=== PATIENT | female | born 1955 | race Two or more races ===

== ENCOUNTER 2016-08-04 13:00 | Outpatient (CLI) | payer OTHER ==
[~2016-08-04 13:00] MED LIST: ASPI-991 PO; ATOR10TA PO; BLOO-140 IN; ENAL5TAB PO; INSU100V13 SQ; METF500T4 PO; SULF1TAB48 PO
== END 2016-08-04 23:59 | disposition home or self-care (01) ==
LOC: WOU 13:00
PROVIDERS: ATTEND Podiatrist Foot & Ankle Surgery
DX: E11.622 Type 2 diabetes mellitus with other skin ulcer (principal); L97.821 Non-pressure chronic ulcer of other part of left lower leg limited to breakdown of skin; E11.51 Type 2 diabetes mellitus with diabetic peripheral angiopathy without gangrene; E66.9 Obesity, unspecified; Z68.34 Body mass index [BMI] 34.0-34.9, adult; Z71.3 Dietary counseling and surveillance; I10 Essential (primary) hypertension; I83.223 Varicose veins of left lower extremity with both ulcer of ankle and inflammation; L97.321 Non-pressure chronic ulcer of left ankle limited to breakdown of skin; Z79.4 Long term (current) use of insulin
CPT/HCPCS: 11042; 11045; A6402

== ENCOUNTER 2016-08-14 12:18 | Outpatient (CLI) | payer OTHER | END 2016-08-14 23:59 | disposition home or self-care (01) | LOC: WOU 12:18 | PROVIDERS: ATTEND Podiatrist Foot & Ankle Surgery | DX: I83.222 Varicose veins of left lower extremity with both ulcer of calf and inflammation (principal); I83.223 Varicose veins of left lower extremity with both ulcer of ankle and inflammation; L97.222 Non-pressure chronic ulcer of left calf with fat layer exposed; L97.321 Non-pressure chronic ulcer of left ankle limited to breakdown of skin; I83.892 Varicose veins of left lower extremity with other complications; B35.1 Tinea unguium; E66.01 Morbid (severe) obesity due to excess calories; Z68.34 Body mass index [BMI] 34.0-34.9, adult; I10 Essential (primary) hypertension; E11.51 Type 2 diabetes mellitus with diabetic peripheral angiopathy without gangrene | CPT/HCPCS: 11042; 11045; A6402 ==

== ENCOUNTER 2016-08-25 13:10 | Outpatient (CLI) | payer OTHER ==
[~2016-08-25 13:10] MED LIST changes: -INSU100V13 SQ; +INSU100V7 SQ
== END 2016-08-25 23:59 | disposition home or self-care (01) ==
LOC: WOU 13:10
PROVIDERS: ATTEND Podiatrist Foot & Ankle Surgery
DX: E11.622 Type 2 diabetes mellitus with other skin ulcer (principal); I83.223 Varicose veins of left lower extremity with both ulcer of ankle and inflammation; L97.321 Non-pressure chronic ulcer of left ankle limited to breakdown of skin; I83.899 Varicose veins of unspecified lower extremity with other complications; E66.01 Morbid (severe) obesity due to excess calories; Z68.34 Body mass index [BMI] 34.0-34.9, adult; I10 Essential (primary) hypertension
CPT/HCPCS: 11042; 11045; A6402

== ENCOUNTER 2016-09-08 12:19 | Outpatient (CLI) | payer OTHER | END 2016-09-08 23:59 | disposition home or self-care (01) | LOC: WOU 12:19 | PROVIDERS: ATTEND Podiatrist Foot & Ankle Surgery | DX: E11.621 Type 2 diabetes mellitus with foot ulcer (principal); L97.222 Non-pressure chronic ulcer of left calf with fat layer exposed; I83.223 Varicose veins of left lower extremity with both ulcer of ankle and inflammation; L97.321 Non-pressure chronic ulcer of left ankle limited to breakdown of skin; L97.221 Non-pressure chronic ulcer of left calf limited to breakdown of skin; E11.52 Type 2 diabetes mellitus with diabetic peripheral angiopathy with gangrene; E66.01 Morbid (severe) obesity due to excess calories; Z68.34 Body mass index [BMI] 34.0-34.9, adult; I10 Essential (primary) hypertension; I83.892 Varicose veins of left lower extremity with other complications; Z79.4 Long term (current) use of insulin; Z79.84 Long term (current) use of oral hypoglycemic drugs | CPT/HCPCS: 11042; A6402 ==

== ENCOUNTER 2016-09-23 12:37 | Outpatient (CLI) | payer OTHER | END 2016-09-23 23:59 | disposition home or self-care (01) | DX: E11.622 Type 2 diabetes mellitus with other skin ulcer (principal); L97.222 Non-pressure chronic ulcer of left calf with fat layer exposed; E11.51 Type 2 diabetes mellitus with diabetic peripheral angiopathy without gangrene; I83.223 Varicose veins of left lower extremity with both ulcer of ankle and inflammation; L97.321 Non-pressure chronic ulcer of left ankle limited to breakdown of skin; E66.01 Morbid (severe) obesity due to excess calories; Z68.34 Body mass index [BMI] 34.0-34.9, adult; I10 Essential (primary) hypertension; I83.892 Varicose veins of left lower extremity with other complications; Z79.4 Long term (current) use of insulin | CPT/HCPCS: 11042; A6402 ==

== ENCOUNTER 2016-10-09 13:00 | Outpatient (CLI) | payer OTHER | END 2016-10-09 23:59 | disposition home or self-care (01) | LOC: WOU 13:00 | PROVIDERS: ATTEND Podiatrist Foot & Ankle Surgery | DX: E11.622 Type 2 diabetes mellitus with other skin ulcer (principal); L97.221 Non-pressure chronic ulcer of left calf limited to breakdown of skin; L97.321 Non-pressure chronic ulcer of left ankle limited to breakdown of skin; E66.9 Obesity, unspecified; Z68.34 Body mass index [BMI] 34.0-34.9, adult; E11.51 Type 2 diabetes mellitus with diabetic peripheral angiopathy without gangrene; Z79.4 Long term (current) use of insulin; Z79.84 Long term (current) use of oral hypoglycemic drugs; I83.892 Varicose veins of left lower extremity with other complications; B35.1 Tinea unguium | CPT/HCPCS: 11042; A6402 ==

== ENCOUNTER 2016-10-16 12:36 | Outpatient (CLI) | payer OTHER | END 2016-10-16 23:59 | disposition home or self-care (01) | LOC: WOU 12:36 | PROVIDERS: ATTEND Podiatrist Foot & Ankle Surgery | DX: E11.622 Type 2 diabetes mellitus with other skin ulcer (principal); L97.821 Non-pressure chronic ulcer of other part of left lower leg limited to breakdown of skin; I83.222 Varicose veins of left lower extremity with both ulcer of calf and inflammation; L97.222 Non-pressure chronic ulcer of left calf with fat layer exposed; L97.321 Non-pressure chronic ulcer of left ankle limited to breakdown of skin; I10 Essential (primary) hypertension; E66.9 Obesity, unspecified; Z68.34 Body mass index [BMI] 34.0-34.9, adult | CPT/HCPCS: 11042; A6402 ==

== ENCOUNTER 2016-10-23 12:32 | Outpatient (CLI) | payer OTHER | END 2016-10-23 23:59 | disposition home or self-care (01) | LOC: WOU 12:32 | PROVIDERS: ATTEND Podiatrist Foot & Ankle Surgery | DX: I83.023 Varicose veins of left lower extremity with ulcer of ankle (principal); L97.321 Non-pressure chronic ulcer of left ankle limited to breakdown of skin; I83.028 Varicose veins of left lower extremity with ulcer other part of lower leg; L97.821 Non-pressure chronic ulcer of other part of left lower leg limited to breakdown of skin; E11.622 Type 2 diabetes mellitus with other skin ulcer; E66.9 Obesity, unspecified; Z68.34 Body mass index [BMI] 34.0-34.9, adult; E11.52 Type 2 diabetes mellitus with diabetic peripheral angiopathy with gangrene | CPT/HCPCS: 11042; 11043; A6402 ==

== ENCOUNTER 2016-10-30 12:49 | Outpatient (CLI) | payer OTHER | END 2016-10-30 23:59 | disposition home or self-care (01) | LOC: WOU 12:49 | PROVIDERS: ATTEND Podiatrist Foot & Ankle Surgery | DX: I83.023 Varicose veins of left lower extremity with ulcer of ankle (principal); L97.321 Non-pressure chronic ulcer of left ankle limited to breakdown of skin; I83.028 Varicose veins of left lower extremity with ulcer other part of lower leg; L97.821 Non-pressure chronic ulcer of other part of left lower leg limited to breakdown of skin; I83.892 Varicose veins of left lower extremity with other complications; E11.622 Type 2 diabetes mellitus with other skin ulcer; E66.9 Obesity, unspecified; Z68.34 Body mass index [BMI] 34.0-34.9, adult; Z71.3 Dietary counseling and surveillance | CPT/HCPCS: 11042; A6402 ==

== ENCOUNTER 2016-11-13 12:40 | Outpatient (CLI) | payer OTHER | END 2016-11-13 23:59 | disposition home or self-care (01) | LOC: WOU 12:40 | PROVIDERS: ATTEND Podiatrist Foot & Ankle Surgery | DX: E11.622 Type 2 diabetes mellitus with other skin ulcer (principal); I83.023 Varicose veins of left lower extremity with ulcer of ankle; L97.221 Non-pressure chronic ulcer of left calf limited to breakdown of skin; L97.321 Non-pressure chronic ulcer of left ankle limited to breakdown of skin; E66.01 Morbid (severe) obesity due to excess calories; Z68.34 Body mass index [BMI] 34.0-34.9, adult; Z71.3 Dietary counseling and surveillance; E11.42 Type 2 diabetes mellitus with diabetic polyneuropathy; B35.1 Tinea unguium; Z79.84 Long term (current) use of oral hypoglycemic drugs; Z79.4 Long term (current) use of insulin; Z79.899 Other long term (current) drug therapy | CPT/HCPCS: 11042; A6402 ==

== ENCOUNTER 2016-11-27 11:53 | Outpatient (CLI) | payer OTHER | END 2016-11-27 23:59 | disposition home or self-care (01) | LOC: WOU 11:53 | PROVIDERS: ATTEND Podiatrist Foot & Ankle Surgery | DX: E11.52 Type 2 diabetes mellitus with diabetic peripheral angiopathy with gangrene (principal); E11.622 Type 2 diabetes mellitus with other skin ulcer; L97.821 Non-pressure chronic ulcer of other part of left lower leg limited to breakdown of skin; E66.01 Morbid (severe) obesity due to excess calories; Z68.34 Body mass index [BMI] 34.0-34.9, adult; I83.222 Varicose veins of left lower extremity with both ulcer of calf and inflammation; L97.222 Non-pressure chronic ulcer of left calf with fat layer exposed; I83.223 Varicose veins of left lower extremity with both ulcer of ankle and inflammation; L97.321 Non-pressure chronic ulcer of left ankle limited to breakdown of skin; I10 Essential (primary) hypertension; B35.1 Tinea unguium; I83.892 Varicose veins of left lower extremity with other complications; Z79.84 Long term (current) use of oral hypoglycemic drugs; Z79.1 Long term (current) use of non-steroidal anti-inflammatories (NSAID) | CPT/HCPCS: 11042; A6402 ==

== ENCOUNTER 2016-12-15 12:24 | Outpatient (CLI) | payer OTHER | END 2016-12-15 23:59 | disposition home or self-care (01) | LOC: WOU 12:24 | PROVIDERS: ATTEND Podiatrist Foot & Ankle Surgery | DX: E11.622 Type 2 diabetes mellitus with other skin ulcer (principal); L97.321 Non-pressure chronic ulcer of left ankle limited to breakdown of skin; L97.221 Non-pressure chronic ulcer of left calf limited to breakdown of skin; I83.223 Varicose veins of left lower extremity with both ulcer of ankle and inflammation; E66.01 Morbid (severe) obesity due to excess calories; Z68.34 Body mass index [BMI] 34.0-34.9, adult; Z79.84 Long term (current) use of oral hypoglycemic drugs; Z79.4 Long term (current) use of insulin; Z79.899 Other long term (current) drug therapy | CPT/HCPCS: 11042; A6402 ==

== ENCOUNTER 2017-01-01 13:34 | Outpatient (CLI) | payer OTHER | END 2017-01-01 23:59 | disposition home or self-care (01) | LOC: WOU 13:34 | PROVIDERS: ATTEND Podiatrist Foot & Ankle Surgery | DX: E11.622 Type 2 diabetes mellitus with other skin ulcer (principal); L97.821 Non-pressure chronic ulcer of other part of left lower leg limited to breakdown of skin; L97.221 Non-pressure chronic ulcer of left calf limited to breakdown of skin; L97.321 Non-pressure chronic ulcer of left ankle limited to breakdown of skin; I83.022 Varicose veins of left lower extremity with ulcer of calf; E66.9 Obesity, unspecified; Z68.34 Body mass index [BMI] 34.0-34.9, adult; B35.1 Tinea unguium; E11.40 Type 2 diabetes mellitus with diabetic neuropathy, unspecified | CPT/HCPCS: 11042; A6402 ==

== ENCOUNTER 2017-01-15 12:36 | Outpatient (CLI) | payer OTHER | END 2017-01-15 23:59 | disposition home or self-care (01) | LOC: WOU 12:36 | PROVIDERS: ATTEND Podiatrist Foot & Ankle Surgery | DX: I87.2 Venous insufficiency (chronic) (peripheral) (principal); L97.321 Non-pressure chronic ulcer of left ankle limited to breakdown of skin; E11.622 Type 2 diabetes mellitus with other skin ulcer; E11.40 Type 2 diabetes mellitus with diabetic neuropathy, unspecified; E66.9 Obesity, unspecified; Z68.34 Body mass index [BMI] 34.0-34.9, adult; L97.221 Non-pressure chronic ulcer of left calf limited to breakdown of skin; E46 Unspecified protein-calorie malnutrition; I10 Essential (primary) hypertension; I89.0 Lymphedema, not elsewhere classified; B35.1 Tinea unguium | CPT/HCPCS: 11042; A6402 ==

== ENCOUNTER 2017-02-05 12:55 | Outpatient (CLI) | payer OTHER | END 2017-02-05 23:59 | disposition home or self-care (01) | LOC: WOU 12:55 | PROVIDERS: ATTEND Podiatrist Foot & Ankle Surgery | DX: E11.51 Type 2 diabetes mellitus with diabetic peripheral angiopathy without gangrene (principal); E11.622 Type 2 diabetes mellitus with other skin ulcer; L97.821 Non-pressure chronic ulcer of other part of left lower leg limited to breakdown of skin; I83.899 Varicose veins of unspecified lower extremity with other complications; B35.1 Tinea unguium; Z79.84 Long term (current) use of oral hypoglycemic drugs; Z79.4 Long term (current) use of insulin | CPT/HCPCS: 11042; A6402 ==

== ENCOUNTER 2017-02-26 12:49 | Outpatient (CLI) | payer OTHER | END 2017-02-26 23:59 | disposition home or self-care (01) | LOC: WOU 12:49 | PROVIDERS: ATTEND Podiatrist Foot & Ankle Surgery | DX: E11.622 Type 2 diabetes mellitus with other skin ulcer (principal); L97.321 Non-pressure chronic ulcer of left ankle limited to breakdown of skin; L97.221 Non-pressure chronic ulcer of left calf limited to breakdown of skin; E11.59 Type 2 diabetes mellitus with other circulatory complications; I83.892 Varicose veins of left lower extremity with other complications; E66.9 Obesity, unspecified; Z68.34 Body mass index [BMI] 34.0-34.9, adult; B35.3 Tinea pedis | CPT/HCPCS: 11042; A6402 ==

== ENCOUNTER 2017-03-12 12:31 | Outpatient (CLI) | payer OTHER | END 2017-03-12 23:59 | disposition home or self-care (01) | LOC: WOU 12:31 | PROVIDERS: ATTEND Podiatrist Foot & Ankle Surgery | DX: E11.622 Type 2 diabetes mellitus with other skin ulcer (principal); L97.221 Non-pressure chronic ulcer of left calf limited to breakdown of skin; B35.1 Tinea unguium; E66.9 Obesity, unspecified; Z68.34 Body mass index [BMI] 34.0-34.9, adult; B35.3 Tinea pedis; I83.893 Varicose veins of bilateral lower extremities with other complications | CPT/HCPCS: 11042; A6402 ==

== ENCOUNTER 2017-04-02 13:00 | Outpatient (CLI) | payer OTHER | END 2017-04-02 23:59 | disposition home or self-care (01) | LOC: WOU 13:00 | PROVIDERS: ATTEND Podiatrist Foot & Ankle Surgery | DX: E11.51 Type 2 diabetes mellitus with diabetic peripheral angiopathy without gangrene (principal); E11.622 Type 2 diabetes mellitus with other skin ulcer; L97.821 Non-pressure chronic ulcer of other part of left lower leg limited to breakdown of skin; B35.3 Tinea pedis; I83.028 Varicose veins of left lower extremity with ulcer other part of lower leg; E66.9 Obesity, unspecified; Z68.34 Body mass index [BMI] 34.0-34.9, adult; Z71.3 Dietary counseling and surveillance; Z79.82 Long term (current) use of aspirin; Z79.84 Long term (current) use of oral hypoglycemic drugs; Z79.4 Long term (current) use of insulin | CPT/HCPCS: 11042; A6402 ==

== ENCOUNTER 2017-04-23 12:30 | Outpatient (CLI) | payer OTHER | END 2017-04-23 23:59 | disposition home or self-care (01) | LOC: WOU 12:30 | PROVIDERS: ATTEND Podiatrist Foot & Ankle Surgery | DX: E11.622 Type 2 diabetes mellitus with other skin ulcer (principal); L97.821 Non-pressure chronic ulcer of other part of left lower leg limited to breakdown of skin; E11.51 Type 2 diabetes mellitus with diabetic peripheral angiopathy without gangrene; I83.018 Varicose veins of right lower extremity with ulcer other part of lower leg; L97.811 Non-pressure chronic ulcer of other part of right lower leg limited to breakdown of skin; B35.1 Tinea unguium; E66.9 Obesity, unspecified; Z68.34 Body mass index [BMI] 34.0-34.9, adult; S91.201A Unspecified open wound of right great toe with damage to nail, initial encounter; X58.XXXA Exposure to other specified factors, initial encounter; Y92.89 Other specified places as the place of occurrence of the external cause; R60.0 Localized edema | CPT/HCPCS: 11042; A6402 ==

== ENCOUNTER 2017-05-14 12:30 | Outpatient (CLI) | payer OTHER | END 2017-05-14 23:59 | disposition home or self-care (01) | LOC: WOU 12:30 | PROVIDERS: ATTEND Podiatrist Foot & Ankle Surgery | DX: E11.622 Type 2 diabetes mellitus with other skin ulcer (principal); L97.821 Non-pressure chronic ulcer of other part of left lower leg limited to breakdown of skin; E11.51 Type 2 diabetes mellitus with diabetic peripheral angiopathy without gangrene; I83.028 Varicose veins of left lower extremity with ulcer other part of lower leg; E66.9 Obesity, unspecified; Z68.34 Body mass index [BMI] 34.0-34.9, adult; Z71.3 Dietary counseling and surveillance; B35.1 Tinea unguium; Z79.84 Long term (current) use of oral hypoglycemic drugs | CPT/HCPCS: 11042; A6402 ==

== ENCOUNTER 2017-06-01 12:45 | Outpatient (CLI) | payer OTHER | END 2017-06-01 23:59 | disposition home or self-care (01) | LOC: WOU 12:45 | PROVIDERS: ATTEND Podiatrist Foot & Ankle Surgery | DX: E11.622 Type 2 diabetes mellitus with other skin ulcer (principal); I83.022 Varicose veins of left lower extremity with ulcer of calf; L97.221 Non-pressure chronic ulcer of left calf limited to breakdown of skin; B35.1 Tinea unguium; L90.9 Atrophic disorder of skin, unspecified; I83.892 Varicose veins of left lower extremity with other complications; E66.9 Obesity, unspecified; Z68.34 Body mass index [BMI] 34.0-34.9, adult; Z71.3 Dietary counseling and surveillance | CPT/HCPCS: 11042; A6402 ==

== ENCOUNTER 2017-06-22 12:45 | Outpatient (CLI) | payer OTHER | END 2017-06-22 23:59 | disposition home or self-care (01) | LOC: WOU 12:45 | PROVIDERS: ATTEND Podiatrist Foot & Ankle Surgery | DX: E11.622 Type 2 diabetes mellitus with other skin ulcer (principal); L97.222 Non-pressure chronic ulcer of left calf with fat layer exposed; E11.51 Type 2 diabetes mellitus with diabetic peripheral angiopathy without gangrene; I83.022 Varicose veins of left lower extremity with ulcer of calf; E66.9 Obesity, unspecified; Z68.34 Body mass index [BMI] 34.0-34.9, adult; B35.1 Tinea unguium; Z79.4 Long term (current) use of insulin; Z79.899 Other long term (current) drug therapy | CPT/HCPCS: 11042; A6402 ==

== ENCOUNTER 2017-07-13 13:00 | Outpatient (CLI) | payer OTHER | END 2017-07-13 23:59 | disposition home or self-care (01) | LOC: WOU 13:00 | PROVIDERS: ATTEND Podiatrist Foot & Ankle Surgery | DX: I83.892 Varicose veins of left lower extremity with other complications (principal); E66.9 Obesity, unspecified; Z68.34 Body mass index [BMI] 34.0-34.9, adult; B35.1 Tinea unguium; L90.5 Scar conditions and fibrosis of skin; E11.59 Type 2 diabetes mellitus with other circulatory complications; Z79.4 Long term (current) use of insulin; Z79.82 Long term (current) use of aspirin | CPT/HCPCS: G0463 ==

== ENCOUNTER 2017-07-30 12:30 | Outpatient (CLI) | payer OTHER ==
[~2017-07-30 12:30] MED LIST changes: +ASPI-1152 PO; -ASPI-991 PO
== END 2017-07-30 23:59 | disposition home or self-care (01) ==
LOC: WOU 12:30
PROVIDERS: ATTEND Podiatrist Foot & Ankle Surgery
DX: I83.899 Varicose veins of unspecified lower extremity with other complications (principal); E11.42 Type 2 diabetes mellitus with diabetic polyneuropathy; B35.1 Tinea unguium; L90.9 Atrophic disorder of skin, unspecified; E66.9 Obesity, unspecified; Z68.34 Body mass index [BMI] 34.0-34.9, adult
CPT/HCPCS: G0463

== ENCOUNTER 2017-08-31 12:30 | Outpatient (CLI) | payer OTHER | END 2017-08-31 23:59 | disposition home or self-care (01) | LOC: WOU 12:30 | PROVIDERS: ATTEND Podiatrist Foot & Ankle Surgery | DX: I83.028 Varicose veins of left lower extremity with ulcer other part of lower leg (principal); L97.822 Non-pressure chronic ulcer of other part of left lower leg with fat layer exposed; E11.42 Type 2 diabetes mellitus with diabetic polyneuropathy; R60.0 Localized edema; E66.9 Obesity, unspecified; Z68.34 Body mass index [BMI] 34.0-34.9, adult; I10 Essential (primary) hypertension; Z79.82 Long term (current) use of aspirin; Z79.4 Long term (current) use of insulin | CPT/HCPCS: 11042; A6402 ==

== ENCOUNTER 2017-10-08 12:52 | Outpatient (CLI) | payer OTHER | END 2017-10-08 23:59 | disposition home or self-care (01) | LOC: WOU 12:52 | PROVIDERS: ATTEND Podiatrist Foot & Ankle Surgery | DX: I83.892 Varicose veins of left lower extremity with other complications (principal); S80.822D Blister (nonthermal), left lower leg, subsequent encounter; X58.XXXD Exposure to other specified factors, subsequent encounter; B35.1 Tinea unguium; E66.9 Obesity, unspecified; Z68.42 Body mass index [BMI] 45.0-49.9, adult; L84 Corns and callosities; L90.9 Atrophic disorder of skin, unspecified; M79.675 Pain in left toe(s); E11.9 Type 2 diabetes mellitus without complications | CPT/HCPCS: 99213; A6402; G0463 ==

== ENCOUNTER 2017-10-26 12:42 | Outpatient (CLI) | payer OTHER | END 2017-10-26 23:59 | disposition home or self-care (01) | LOC: WOU 12:42 | PROVIDERS: ATTEND Podiatrist Foot & Ankle Surgery | DX: I83.892 Varicose veins of left lower extremity with other complications (principal); B35.1 Tinea unguium; L85.3 Xerosis cutis; E11.9 Type 2 diabetes mellitus without complications | CPT/HCPCS: G0463 ==

== ENCOUNTER 2018-04-26 12:40 | Outpatient (CLI) | payer OTHER ==
[~2018-04-26 12:40] MED LIST changes: +HEPARIN SODIUM, PORCINE 5000 UNITS/1 ML VIAL ONE; +METF-440 PO; -METF500T4 PO
== END 2018-04-26 23:59 | disposition home or self-care (01) ==
LOC: WOU 12:40
PROVIDERS: ATTEND Podiatrist Foot & Ankle Surgery
DX: E11.622 Type 2 diabetes mellitus with other skin ulcer (principal); L97.329 Non-pressure chronic ulcer of left ankle with unspecified severity; E11.65 Type 2 diabetes mellitus with hyperglycemia; I87.2 Venous insufficiency (chronic) (peripheral); R60.0 Localized edema; E66.9 Obesity, unspecified; Z68.42 Body mass index [BMI] 45.0-49.9, adult; Z71.3 Dietary counseling and surveillance; I10 Essential (primary) hypertension
CPT/HCPCS: 99214; A6402; Z7610; G0463; J1644

== ENCOUNTER 2018-05-06 13:00 | Outpatient (CLI) | payer OTHER ==
[~2018-05-06 13:00] MED LIST changes: -HEPARIN SODIUM, PORCINE 5000 UNITS/1 ML VIAL ONE
== END 2018-05-06 23:59 | disposition home or self-care (01) ==
LOC: WOU 13:00
PROVIDERS: ATTEND Podiatrist Foot & Ankle Surgery
DX: E11.622 Type 2 diabetes mellitus with other skin ulcer (principal); L97.828 Non-pressure chronic ulcer of other part of left lower leg with other specified severity; E66.9 Obesity, unspecified; Z68.42 Body mass index [BMI] 45.0-49.9, adult; Z79.84 Long term (current) use of oral hypoglycemic drugs; I83.892 Varicose veins of left lower extremity with other complications
CPT/HCPCS: 11042; A6402; Z7610

== ENCOUNTER 2018-05-13 12:30 | Outpatient (CLI) | payer OTHER | END 2018-05-13 23:59 | disposition home or self-care (01) | LOC: WOU 12:30 | PROVIDERS: ATTEND Podiatrist Foot & Ankle Surgery | DX: E11.622 Type 2 diabetes mellitus with other skin ulcer (principal); I83.023 Varicose veins of left lower extremity with ulcer of ankle; L97.322 Non-pressure chronic ulcer of left ankle with fat layer exposed; E66.9 Obesity, unspecified; Z68.42 Body mass index [BMI] 45.0-49.9, adult; R60.0 Localized edema; Z79.84 Long term (current) use of oral hypoglycemic drugs | CPT/HCPCS: 11042; A6402; Z7610 ==

== ENCOUNTER 2018-07-12 12:30 | Outpatient (CLI) | payer OTHER | END 2018-07-12 23:59 | disposition home or self-care (01) | LOC: WOU 12:30 | PROVIDERS: ATTEND Podiatrist Foot & Ankle Surgery | DX: E11.622 Type 2 diabetes mellitus with other skin ulcer (principal); L97.822 Non-pressure chronic ulcer of other part of left lower leg with fat layer exposed; E11.42 Type 2 diabetes mellitus with diabetic polyneuropathy; Z79.84 Long term (current) use of oral hypoglycemic drugs; I87.2 Venous insufficiency (chronic) (peripheral); R60.9 Edema, unspecified; B35.1 Tinea unguium | CPT/HCPCS: 11042; A6402 ×2; Z7610 ==

== ENCOUNTER 2018-07-22 12:30 | Outpatient (CLI) | payer OTHER | END 2018-07-22 23:59 | disposition home or self-care (01) | LOC: WOU 12:30 | PROVIDERS: ATTEND Podiatrist Foot & Ankle Surgery | DX: E11.622 Type 2 diabetes mellitus with other skin ulcer (principal); E11.51 Type 2 diabetes mellitus with diabetic peripheral angiopathy without gangrene; L97.822 Non-pressure chronic ulcer of other part of left lower leg with fat layer exposed; L97.818 Non-pressure chronic ulcer of other part of right lower leg with other specified severity; E66.9 Obesity, unspecified; Z68.42 Body mass index [BMI] 45.0-49.9, adult; Z71.3 Dietary counseling and surveillance; I83.018 Varicose veins of right lower extremity with ulcer other part of lower leg; I83.028 Varicose veins of left lower extremity with ulcer other part of lower leg; B35.1 Tinea unguium; M65.9 Synovitis and tenosynovitis, unspecified | CPT/HCPCS: 11042; A6402; Z7610 ==

== ENCOUNTER 2018-08-19 12:50 | Outpatient (CLI) | payer OTHER | END 2018-08-19 23:59 | disposition home or self-care (01) | LOC: WOU 12:50 | PROVIDERS: ATTEND Podiatrist Foot & Ankle Surgery | DX: E11.622 Type 2 diabetes mellitus with other skin ulcer (principal); L97.822 Non-pressure chronic ulcer of other part of left lower leg with fat layer exposed; E66.9 Obesity, unspecified; Z68.42 Body mass index [BMI] 45.0-49.9, adult; R60.0 Localized edema; I83.899 Varicose veins of unspecified lower extremity with other complications; Z79.84 Long term (current) use of oral hypoglycemic drugs | CPT/HCPCS: 11042; A6402; Z7610 ==

== ENCOUNTER 2018-08-26 12:00 | Outpatient (CLI) | payer OTHER | END 2018-08-26 23:59 | disposition home or self-care (01) | LOC: WOU 12:00 | PROVIDERS: ATTEND Podiatrist Foot & Ankle Surgery | DX: E11.622 Type 2 diabetes mellitus with other skin ulcer (principal); L97.822 Non-pressure chronic ulcer of other part of left lower leg with fat layer exposed; R60.0 Localized edema; I87.2 Venous insufficiency (chronic) (peripheral); E66.9 Obesity, unspecified; Z68.42 Body mass index [BMI] 45.0-49.9, adult; Z79.84 Long term (current) use of oral hypoglycemic drugs | CPT/HCPCS: 11042; A6402; Z7610 ==

== ENCOUNTER 2018-09-09 12:44 | Outpatient (CLI) | payer OTHER | END 2018-09-09 23:59 | disposition home or self-care (01) | LOC: WOU 12:44 | PROVIDERS: ATTEND Podiatrist Foot & Ankle Surgery | DX: E11.622 Type 2 diabetes mellitus with other skin ulcer (principal); L97.822 Non-pressure chronic ulcer of other part of left lower leg with fat layer exposed; I83.018 Varicose veins of right lower extremity with ulcer other part of lower leg; I83.891 Varicose veins of right lower extremity with other complications; Z79.84 Long term (current) use of oral hypoglycemic drugs; Z79.899 Other long term (current) drug therapy | CPT/HCPCS: 11042; A6402 ==

== ENCOUNTER 2018-09-30 12:45 | Outpatient (CLI) | payer OTHER | END 2018-09-30 23:59 | disposition home or self-care (01) | LOC: WOU 12:45 | PROVIDERS: ATTEND Podiatrist Foot & Ankle Surgery | DX: E11.622 Type 2 diabetes mellitus with other skin ulcer (principal); L97.822 Non-pressure chronic ulcer of other part of left lower leg with fat layer exposed; I87.8 Other specified disorders of veins; R60.0 Localized edema; B35.1 Tinea unguium; E66.9 Obesity, unspecified; Z68.42 Body mass index [BMI] 45.0-49.9, adult; E11.59 Type 2 diabetes mellitus with other circulatory complications; Z79.84 Long term (current) use of oral hypoglycemic drugs | CPT/HCPCS: 11042; A6402 ==

== ENCOUNTER 2018-10-07 12:00 | Outpatient (CLI) | payer OTHER | END 2018-10-07 23:59 | disposition home or self-care (01) | LOC: WOU 12:00 | PROVIDERS: ATTEND Podiatrist Foot & Ankle Surgery | DX: E11.622 Type 2 diabetes mellitus with other skin ulcer (principal); I83.023 Varicose veins of left lower extremity with ulcer of ankle; L97.321 Non-pressure chronic ulcer of left ankle limited to breakdown of skin; E66.9 Obesity, unspecified; Z68.42 Body mass index [BMI] 45.0-49.9, adult; B35.1 Tinea unguium; Z79.84 Long term (current) use of oral hypoglycemic drugs; Z79.899 Other long term (current) drug therapy | CPT/HCPCS: 11042; A6402 ==

== ENCOUNTER 2018-10-14 12:10 | Outpatient (CLI) | payer OTHER | END 2018-10-14 23:59 | disposition home or self-care (01) | LOC: WOU 12:10 | PROVIDERS: ATTEND Podiatrist Foot & Ankle Surgery | DX: E11.622 Type 2 diabetes mellitus with other skin ulcer (principal); L97.322 Non-pressure chronic ulcer of left ankle with fat layer exposed; E66.9 Obesity, unspecified; Z68.42 Body mass index [BMI] 45.0-49.9, adult; E11.42 Type 2 diabetes mellitus with diabetic polyneuropathy; R60.0 Localized edema; Z79.84 Long term (current) use of oral hypoglycemic drugs; I83.023 Varicose veins of left lower extremity with ulcer of ankle | CPT/HCPCS: 11042; A6402 ==

== ENCOUNTER 2018-10-28 12:05 | Outpatient (CLI) | payer OTHER | END 2018-10-28 23:59 | disposition home or self-care (01) | LOC: WOU 12:05 | PROVIDERS: ATTEND Podiatrist Foot & Ankle Surgery | DX: E11.622 Type 2 diabetes mellitus with other skin ulcer (principal); L97.322 Non-pressure chronic ulcer of left ankle with fat layer exposed; L03.116 Cellulitis of left lower limb; E11.42 Type 2 diabetes mellitus with diabetic polyneuropathy; E66.9 Obesity, unspecified; Z68.42 Body mass index [BMI] 45.0-49.9, adult; I83.892 Varicose veins of left lower extremity with other complications; Z79.84 Long term (current) use of oral hypoglycemic drugs; Z79.899 Other long term (current) drug therapy | CPT/HCPCS: 11042; A6402 ==

== ENCOUNTER 2018-11-11 12:00 | Outpatient (CLI) | payer OTHER | END 2018-11-11 23:59 | disposition home or self-care (01) | LOC: WOU 12:00 | PROVIDERS: ATTEND Podiatrist Foot & Ankle Surgery | DX: E11.622 Type 2 diabetes mellitus with other skin ulcer (principal); L97.322 Non-pressure chronic ulcer of left ankle with fat layer exposed; E66.9 Obesity, unspecified; Z68.42 Body mass index [BMI] 45.0-49.9, adult; I83.899 Varicose veins of unspecified lower extremity with other complications; Z79.84 Long term (current) use of oral hypoglycemic drugs | CPT/HCPCS: 11042; A6402 ==

== ENCOUNTER 2018-12-02 12:10 | Outpatient (CLI) | payer OTHER | END 2018-12-02 23:59 | disposition home or self-care (01) | LOC: WOU 12:10 | PROVIDERS: ATTEND Podiatrist Foot & Ankle Surgery | DX: E11.622 Type 2 diabetes mellitus with other skin ulcer (principal); L97.322 Non-pressure chronic ulcer of left ankle with fat layer exposed; I83.892 Varicose veins of left lower extremity with other complications; E66.9 Obesity, unspecified; Z68.42 Body mass index [BMI] 45.0-49.9, adult; B35.1 Tinea unguium; L90.9 Atrophic disorder of skin, unspecified; Z79.84 Long term (current) use of oral hypoglycemic drugs; Z79.899 Other long term (current) drug therapy | CPT/HCPCS: 11042; A6402 ==

== ENCOUNTER 2018-12-16 12:00 | Outpatient (CLI) | payer OTHER | END 2018-12-16 23:59 | disposition home or self-care (01) | LOC: WOU 12:00 | PROVIDERS: ATTEND Podiatrist Foot & Ankle Surgery | DX: E11.622 Type 2 diabetes mellitus with other skin ulcer (principal); L97.322 Non-pressure chronic ulcer of left ankle with fat layer exposed; E66.9 Obesity, unspecified; Z68.42 Body mass index [BMI] 45.0-49.9, adult; I87.8 Other specified disorders of veins; Z79.84 Long term (current) use of oral hypoglycemic drugs | CPT/HCPCS: 11042; A6402 ==

== ENCOUNTER 2018-12-30 11:00 | Outpatient (CLI) | payer OTHER | END 2018-12-30 23:59 | disposition home or self-care (01) | LOC: WOU 11:00 | PROVIDERS: ATTEND Podiatrist Foot & Ankle Surgery | DX: E11.622 Type 2 diabetes mellitus with other skin ulcer (principal); L97.322 Non-pressure chronic ulcer of left ankle with fat layer exposed; E66.9 Obesity, unspecified; Z68.42 Body mass index [BMI] 45.0-49.9, adult; B35.1 Tinea unguium; M79.675 Pain in left toe(s); M79.674 Pain in right toe(s); I83.90 Asymptomatic varicose veins of unspecified lower extremity; Z79.84 Long term (current) use of oral hypoglycemic drugs | CPT/HCPCS: 17250; A6402 ==

== ENCOUNTER 2019-01-13 12:15 | Outpatient (CLI) | payer OTHER | END 2019-01-13 23:59 | disposition home or self-care (01) | LOC: WOU 12:15 | PROVIDERS: ATTEND Podiatrist Foot & Ankle Surgery | DX: E11.622 Type 2 diabetes mellitus with other skin ulcer (principal); L97.322 Non-pressure chronic ulcer of left ankle with fat layer exposed; E66.9 Obesity, unspecified; Z68.42 Body mass index [BMI] 45.0-49.9, adult; Z71.3 Dietary counseling and surveillance; I83.023 Varicose veins of left lower extremity with ulcer of ankle; L97.321 Non-pressure chronic ulcer of left ankle limited to breakdown of skin; R60.0 Localized edema; E11.59 Type 2 diabetes mellitus with other circulatory complications | CPT/HCPCS: 17250; A6402 ==

== ENCOUNTER 2019-01-31 12:30 | Outpatient (CLI) | payer OTHER | END 2019-01-31 23:59 | disposition home or self-care (01) | LOC: WOU 12:30 | PROVIDERS: ATTEND Podiatrist Foot & Ankle Surgery | DX: E11.622 Type 2 diabetes mellitus with other skin ulcer (principal); L97.822 Non-pressure chronic ulcer of other part of left lower leg with fat layer exposed; I87.2 Venous insufficiency (chronic) (peripheral); L03.116 Cellulitis of left lower limb; R60.0 Localized edema; B35.1 Tinea unguium; E66.9 Obesity, unspecified; Z68.42 Body mass index [BMI] 45.0-49.9, adult; Z79.84 Long term (current) use of oral hypoglycemic drugs | CPT/HCPCS: 17250; A6402; G0463 ==

== ENCOUNTER 2019-02-07 12:30 | Outpatient (CLI) | payer OTHER ==
[~2019-02-07 12:30] MED LIST changes: +FENTANYL PF 250MCG/5ML AMPUL ONE; +MIDAZOLAM HCL 2 MG/2ML VIAL ONE; +ROCURONIUM BROMIDE 50 MG/5 ML ONE
== END 2019-02-07 23:59 | disposition home or self-care (01) ==
LOC: WOU 12:30
PROVIDERS: ATTEND Podiatrist Foot & Ankle Surgery
DX: E11.622 Type 2 diabetes mellitus with other skin ulcer (principal); L97.322 Non-pressure chronic ulcer of left ankle with fat layer exposed; I87.2 Venous insufficiency (chronic) (peripheral); R60.0 Localized edema; B35.1 Tinea unguium; Z79.84 Long term (current) use of oral hypoglycemic drugs
CPT/HCPCS: 17250; A6402; J2250; J3010

== ENCOUNTER 2019-02-14 12:00 | Outpatient (CLI) | payer OTHER ==
[~2019-02-14 12:00] MED LIST changes: -FENTANYL PF 250MCG/5ML AMPUL ONE; -MIDAZOLAM HCL 2 MG/2ML VIAL ONE; -ROCURONIUM BROMIDE 50 MG/5 ML ONE
== END 2019-02-14 23:59 | disposition home or self-care (01) ==
LOC: WOU 12:00
PROVIDERS: ATTEND Podiatrist Foot & Ankle Surgery
DX: E11.622 Type 2 diabetes mellitus with other skin ulcer (principal); L97.822 Non-pressure chronic ulcer of other part of left lower leg with fat layer exposed; Z79.84 Long term (current) use of oral hypoglycemic drugs; I87.2 Venous insufficiency (chronic) (peripheral); B35.1 Tinea unguium; R60.0 Localized edema; E66.9 Obesity, unspecified; Z68.42 Body mass index [BMI] 45.0-49.9, adult
CPT/HCPCS: 17250; A6402

== ENCOUNTER 2019-03-03 11:00 | Outpatient (CLI) | payer OTHER | END 2019-03-03 23:59 | disposition home or self-care (01) | LOC: WOU 11:00 | PROVIDERS: ATTEND Podiatrist Foot & Ankle Surgery | DX: E11.622 Type 2 diabetes mellitus with other skin ulcer (principal); L97.822 Non-pressure chronic ulcer of other part of left lower leg with fat layer exposed; I83.892 Varicose veins of left lower extremity with other complications; E66.9 Obesity, unspecified; Z68.42 Body mass index [BMI] 45.0-49.9, adult; B35.1 Tinea unguium; Z79.84 Long term (current) use of oral hypoglycemic drugs | CPT/HCPCS: 17250 ==

== ENCOUNTER 2019-03-17 11:00 | Outpatient (CLI) | payer OTHER | END 2019-03-17 23:59 | disposition home or self-care (01) | LOC: WOU 11:00 | PROVIDERS: ATTEND Podiatrist Foot & Ankle Surgery | DX: L03.116 Cellulitis of left lower limb (principal); R60.0 Localized edema; B35.1 Tinea unguium; E66.9 Obesity, unspecified; Z68.42 Body mass index [BMI] 45.0-49.9, adult; E11.59 Type 2 diabetes mellitus with other circulatory complications; I83.899 Varicose veins of unspecified lower extremity with other complications; Z79.84 Long term (current) use of oral hypoglycemic drugs | CPT/HCPCS: G0463 ==

== ENCOUNTER 2019-04-14 11:46 | Outpatient (CLI) | payer OTHER | END 2019-04-14 23:59 | disposition home or self-care (01) | LOC: WOU 11:46 | PROVIDERS: ATTEND Podiatrist Foot & Ankle Surgery | DX: I83.892 Varicose veins of left lower extremity with other complications (principal); B35.1 Tinea unguium; L85.3 Xerosis cutis; E11.9 Type 2 diabetes mellitus without complications; Z79.84 Long term (current) use of oral hypoglycemic drugs | CPT/HCPCS: G0463 ==

== ENCOUNTER 2019-07-12 12:40 | Outpatient (CLI) | payer OTHER | END 2019-07-12 23:59 | disposition home or self-care (01) | LOC: WOU 12:40 | PROVIDERS: ATTEND Podiatrist Foot & Ankle Surgery | DX: Z48.817 Encounter for surgical aftercare following surgery on the skin and subcutaneous tissue (principal); I87.2 Venous insufficiency (chronic) (peripheral); E66.9 Obesity, unspecified; Z68.42 Body mass index [BMI] 45.0-49.9, adult; B35.1 Tinea unguium; R60.0 Localized edema | CPT/HCPCS: G0463 ==

== ENCOUNTER 2019-09-15 11:20 | Outpatient (CLI) | payer OTHER | END 2019-09-15 23:59 | disposition home or self-care (01) | LOC: WOU 11:20 | PROVIDERS: ATTEND Podiatrist Foot & Ankle Surgery | DX: Z09 Encounter for follow-up examination after completed treatment for conditions other than malignant neoplasm (principal); L60.0 Ingrowing nail; M79.675 Pain in left toe(s); E66.01 Morbid (severe) obesity due to excess calories; Z68.42 Body mass index [BMI] 45.0-49.9, adult; L90.9 Atrophic disorder of skin, unspecified; B35.1 Tinea unguium; I87.2 Venous insufficiency (chronic) (peripheral); E11.9 Type 2 diabetes mellitus without complications | CPT/HCPCS: 11730 ==

== ENCOUNTER 2020-02-09 12:00 | Outpatient (CLI) | payer OTHER | END 2020-02-09 23:59 | disposition home or self-care (01) | LOC: WOU 12:00 | PROVIDERS: ATTEND Podiatrist Foot & Ankle Surgery | DX: I87.2 Venous insufficiency (chronic) (peripheral) (principal); L97.822 Non-pressure chronic ulcer of other part of left lower leg with fat layer exposed; R60.1 Generalized edema; B35.1 Tinea unguium; E11.9 Type 2 diabetes mellitus without complications; Z79.84 Long term (current) use of oral hypoglycemic drugs | CPT/HCPCS: 11042; 11045 ==

== ENCOUNTER → 2020-02-16 | Outpatient (CLI) | payer OTHER | END | disposition home or self-care (01) | LOC: WOU 10:30 | PROVIDERS: ATTEND Podiatrist Foot & Ankle Surgery | DX: I87.2 Venous insufficiency (chronic) (peripheral) (principal); L97.222 Non-pressure chronic ulcer of left calf with fat layer exposed; L03.116 Cellulitis of left lower limb; B35.1 Tinea unguium; E11.9 Type 2 diabetes mellitus without complications; Z79.84 Long term (current) use of oral hypoglycemic drugs; E66.9 Obesity, unspecified; Z68.42 Body mass index [BMI] 45.0-49.9, adult; R60.1 Generalized edema | CPT/HCPCS: 11042; 11045; 87070; 87077; 87186; A6207 ==

== ENCOUNTER 2020-02-23 10:00 | Outpatient (CLI) | payer OTHER | END 2020-02-23 23:59 | disposition home or self-care (01) | LOC: WOU 10:00 | PROVIDERS: ATTEND Podiatrist Foot & Ankle Surgery | DX: L97.222 Non-pressure chronic ulcer of left calf with fat layer exposed (principal); I87.2 Venous insufficiency (chronic) (peripheral); L03.116 Cellulitis of left lower limb; B35.1 Tinea unguium; R60.0 Localized edema; E11.9 Type 2 diabetes mellitus without complications; Z79.84 Long term (current) use of oral hypoglycemic drugs; I10 Essential (primary) hypertension | CPT/HCPCS: 11042; 11045; A6207 ==

== ENCOUNTER 2020-03-01 09:45 | Outpatient (CLI) | payer OTHER | END 2020-03-01 23:59 | disposition home or self-care (01) | LOC: WOU 09:45 | PROVIDERS: ATTEND Podiatrist Foot & Ankle Surgery | DX: I87.2 Venous insufficiency (chronic) (peripheral) (principal); L97.222 Non-pressure chronic ulcer of left calf with fat layer exposed; L03.116 Cellulitis of left lower limb; R60.1 Generalized edema; B35.1 Tinea unguium; E11.9 Type 2 diabetes mellitus without complications; Z79.84 Long term (current) use of oral hypoglycemic drugs | CPT/HCPCS: 11042; 11045; A6207 ==

== ENCOUNTER 2020-03-08 10:00 | Outpatient (CLI) | payer OTHER ==
[~2020-03-08 10:00] MED LIST changes: -ASPI-1152 PO; +ASPI-1420 PO
[2020-03-08] MEDS ORDERED: LIDOCAINE SOLN 4% 50 ML BOTTLE ONE (10:12)
[2020-03-08] MEDS ORDERED: UREA 10% -AHA 4% CREAM 57 GM TUBE ONE (10:36)
== END 2020-03-08 23:59 | disposition home or self-care (01) ==
LOC: WOU 10:00
PROVIDERS: ATTEND Podiatrist Foot & Ankle Surgery
DX: I87.2 Venous insufficiency (chronic) (peripheral) (principal); L97.222 Non-pressure chronic ulcer of left calf with fat layer exposed; B35.1 Tinea unguium; E11.9 Type 2 diabetes mellitus without complications; Z79.84 Long term (current) use of oral hypoglycemic drugs; E66.9 Obesity, unspecified; Z68.42 Body mass index [BMI] 45.0-49.9, adult; R60.1 Generalized edema
CPT/HCPCS: 11042; A6207

== ENCOUNTER 2020-03-19 10:30 | Outpatient (CLI) | payer OTHER ==
[2020-03-19] MEDS ORDERED: UREA 10% -AHA 4% CREAM 57 GM TUBE ONE (11:29)
== END 2020-03-19 23:59 | disposition home or self-care (01) ==
LOC: WOU 10:30
PROVIDERS: ATTEND Podiatrist Foot & Ankle Surgery
DX: I87.2 Venous insufficiency (chronic) (peripheral) (principal); L97.822 Non-pressure chronic ulcer of other part of left lower leg with fat layer exposed; R60.1 Generalized edema; B35.1 Tinea unguium; E11.9 Type 2 diabetes mellitus without complications; Z79.84 Long term (current) use of oral hypoglycemic drugs; I10 Essential (primary) hypertension
CPT/HCPCS: 11042; 11045; A6207

== ENCOUNTER 2020-03-29 09:50 | Outpatient (CLI) | payer OTHER ==
[2020-03-29] MEDS ORDERED: UREA 10% -AHA 4% CREAM 57 GM TUBE ONE (10:50)
== END 2020-03-29 23:59 | disposition home or self-care (01) ==
LOC: WOU 09:50
PROVIDERS: ATTEND Podiatrist Foot & Ankle Surgery
DX: I87.2 Venous insufficiency (chronic) (peripheral) (principal); L97.822 Non-pressure chronic ulcer of other part of left lower leg with fat layer exposed; R60.1 Generalized edema; B35.1 Tinea unguium; E11.9 Type 2 diabetes mellitus without complications; Z79.84 Long term (current) use of oral hypoglycemic drugs
CPT/HCPCS: 11042

== ENCOUNTER 2020-04-05 09:45 | Outpatient (CLI) | payer OTHER ==
[~2020-04-05 09:45] MED LIST changes: +LIDOCAINE SOLN 4% 50 ML BOTTLE ONE
== END 2020-04-05 23:59 | disposition home or self-care (01) ==
LOC: WOU 09:45
PROVIDERS: ATTEND Podiatrist Foot & Ankle Surgery
DX: I87.2 Venous insufficiency (chronic) (peripheral) (principal); L97.822 Non-pressure chronic ulcer of other part of left lower leg with fat layer exposed; B35.1 Tinea unguium; R60.1 Generalized edema; E66.01 Morbid (severe) obesity due to excess calories; Z68.42 Body mass index [BMI] 45.0-49.9, adult; E11.9 Type 2 diabetes mellitus without complications; Z79.84 Long term (current) use of oral hypoglycemic drugs
CPT/HCPCS: 11042

== ENCOUNTER 2020-04-12 09:40 | Outpatient (CLI) | payer OTHER ==
[~2020-04-12 09:40] MED LIST changes: -LIDOCAINE SOLN 4% 50 ML BOTTLE ONE
[2020-04-12] MEDS ORDERED: LIDOCAINE SOLN 4% 50 ML BOTTLE ONE (09:58)
[2020-04-12] MEDS ORDERED: UREA 10% -AHA 4% CREAM 57 GM TUBE ONE (10:58)
== END 2020-04-12 23:59 | disposition home or self-care (01) ==
LOC: WOU 09:40
PROVIDERS: ATTEND Podiatrist Foot & Ankle Surgery
DX: I87.2 Venous insufficiency (chronic) (peripheral) (principal); L97.822 Non-pressure chronic ulcer of other part of left lower leg with fat layer exposed; B35.1 Tinea unguium; E11.9 Type 2 diabetes mellitus without complications; Z79.84 Long term (current) use of oral hypoglycemic drugs; R60.1 Generalized edema
CPT/HCPCS: 11042

== ENCOUNTER 2020-04-19 09:40 | Outpatient (CLI) | payer OTHER ==
[~2020-04-19 09:40] MED LIST changes: +ENAL-78 PO; -ENAL5TAB PO
== END 2020-04-19 23:59 | disposition home or self-care (01) ==
LOC: WOU 09:40
PROVIDERS: ATTEND Podiatrist Foot & Ankle Surgery
DX: I87.2 Venous insufficiency (chronic) (peripheral) (principal); R60.1 Generalized edema; B35.1 Tinea unguium; I10 Essential (primary) hypertension; E66.9 Obesity, unspecified; Z68.42 Body mass index [BMI] 45.0-49.9, adult; E11.9 Type 2 diabetes mellitus without complications; Z79.84 Long term (current) use of oral hypoglycemic drugs
CPT/HCPCS: 11042

== ENCOUNTER 2020-05-03 10:05 | Outpatient (CLI) | payer OTHER ==
[~2020-05-03 10:05] MED LIST changes: +LIDOCAINE SOLN 4% 50 ML BOTTLE ONE
== END 2020-05-03 23:59 | disposition home or self-care (01) ==
LOC: WOU 10:05
PROVIDERS: ATTEND Podiatrist Foot & Ankle Surgery
DX: I87.2 Venous insufficiency (chronic) (peripheral) (principal); L97.822 Non-pressure chronic ulcer of other part of left lower leg with fat layer exposed; R60.1 Generalized edema; B35.1 Tinea unguium; E11.9 Type 2 diabetes mellitus without complications; Z79.84 Long term (current) use of oral hypoglycemic drugs
CPT/HCPCS: 11042

== ENCOUNTER 2020-05-10 10:00 | Outpatient (CLI) | payer OTHER ==
[~2020-05-10 10:00] MED LIST changes: -LIDOCAINE SOLN 4% 50 ML BOTTLE ONE
[2020-05-10] MEDS ORDERED: LIDOCAINE SOLN 4% 50 ML BOTTLE ONE (10:11)
[2020-05-10] MEDS ORDERED: UREA 10% -AHA 4% CREAM 57 GM TUBE ONE (10:12)
== END 2020-05-10 23:59 | disposition home or self-care (01) ==
LOC: WOU 10:00
PROVIDERS: ATTEND Podiatrist Foot & Ankle Surgery
DX: I87.2 Venous insufficiency (chronic) (peripheral) (principal); L97.222 Non-pressure chronic ulcer of left calf with fat layer exposed; B35.1 Tinea unguium; R60.1 Generalized edema; E11.9 Type 2 diabetes mellitus without complications; Z79.84 Long term (current) use of oral hypoglycemic drugs
CPT/HCPCS: 11042

== ENCOUNTER 2020-05-17 09:19 | Outpatient (CLI) | payer OTHER ==
[2020-05-17] MEDS ORDERED: LIDOCAINE SOLN 4% 50 ML BOTTLE ONE (09:33)
== END 2020-05-17 23:59 | disposition home or self-care (01) ==
LOC: WOU 09:19
PROVIDERS: ATTEND Podiatrist Foot & Ankle Surgery
DX: I87.2 Venous insufficiency (chronic) (peripheral) (principal); L97.822 Non-pressure chronic ulcer of other part of left lower leg with fat layer exposed; R60.1 Generalized edema; B35.1 Tinea unguium; E11.9 Type 2 diabetes mellitus without complications; Z79.84 Long term (current) use of oral hypoglycemic drugs
CPT/HCPCS: 11042

== ENCOUNTER 2020-05-24 09:45 | Outpatient (CLI) | payer OTHER | END 2020-05-24 23:59 | disposition home or self-care (01) | LOC: WOU 09:45 | PROVIDERS: ATTEND Podiatrist Foot & Ankle Surgery | DX: I87.2 Venous insufficiency (chronic) (peripheral) (principal); L97.822 Non-pressure chronic ulcer of other part of left lower leg with fat layer exposed; E11.9 Type 2 diabetes mellitus without complications; Z79.84 Long term (current) use of oral hypoglycemic drugs; B35.1 Tinea unguium; R60.1 Generalized edema | CPT/HCPCS: 11042 ==

== ENCOUNTER 2020-06-04 09:15 | Outpatient (CLI) | payer OTHER ==
[2020-06-04] MEDS ORDERED: LIDOCAINE SOLN 4% 50 ML BOTTLE ONE (09:38)
== END 2020-06-04 23:59 | disposition home or self-care (01) ==
LOC: WOU 09:15
PROVIDERS: ATTEND Podiatrist Foot & Ankle Surgery
DX: I87.2 Venous insufficiency (chronic) (peripheral) (principal); L97.222 Non-pressure chronic ulcer of left calf with fat layer exposed; L60.0 Ingrowing nail; E11.9 Type 2 diabetes mellitus without complications; Z79.84 Long term (current) use of oral hypoglycemic drugs; B35.1 Tinea unguium; R60.1 Generalized edema
CPT/HCPCS: 11042

== ENCOUNTER 2020-06-21 09:15 | Outpatient (CLI) | payer OTHER | END 2020-06-21 23:59 | disposition home or self-care (01) | LOC: WOU 09:15 | PROVIDERS: ATTEND Podiatrist Foot & Ankle Surgery | DX: I87.2 Venous insufficiency (chronic) (peripheral) (principal); L97.222 Non-pressure chronic ulcer of left calf with fat layer exposed; R60.1 Generalized edema; B35.1 Tinea unguium; L60.0 Ingrowing nail | CPT/HCPCS: 11042 ==

== ENCOUNTER 2020-07-05 09:15 | Outpatient (CLI) | payer OTHER ==
[2020-07-05] MEDS ORDERED: LIDOCAINE SOLN 4% 50 ML BOTTLE ONE (09:32)
== END 2020-07-05 23:59 | disposition home or self-care (01) ==
LOC: WOU 09:15
PROVIDERS: ATTEND Podiatrist Foot & Ankle Surgery
DX: I87.2 Venous insufficiency (chronic) (peripheral) (principal); L97.222 Non-pressure chronic ulcer of left calf with fat layer exposed; R60.1 Generalized edema; B35.1 Tinea unguium; E11.9 Type 2 diabetes mellitus without complications; Z79.84 Long term (current) use of oral hypoglycemic drugs; L84 Corns and callosities; M79.675 Pain in left toe(s)
CPT/HCPCS: 11042

== ENCOUNTER 2020-07-12 09:50 | Outpatient (CLI) | payer OTHER | END 2020-07-12 23:59 | disposition home or self-care (01) | LOC: WOU 09:50 | PROVIDERS: ATTEND Podiatrist Foot & Ankle Surgery | DX: I87.2 Venous insufficiency (chronic) (peripheral) (principal); L97.222 Non-pressure chronic ulcer of left calf with fat layer exposed; R60.1 Generalized edema; B35.1 Tinea unguium; L84 Corns and callosities; M79.675 Pain in left toe(s) | CPT/HCPCS: 11042 ==

== ENCOUNTER 2020-07-19 09:00 | Outpatient (CLI) | payer OTHER ==
[~2020-07-19 09:00] MED LIST changes: +DAKINS HALF STRENGTH (0.25%) 480 ML BOTTLE ONE; +LIDOCAINE SOLN 4% 50 ML BOTTLE ONE
[2020-07-19] MEDS ORDERED: LIDOCAINE SOLN 4% 50 ML BOTTLE ONE (09:21)
== END 2020-07-19 23:59 | disposition home or self-care (01) ==
LOC: WOU 09:00
PROVIDERS: ATTEND Podiatrist Foot & Ankle Surgery
DX: I87.2 Venous insufficiency (chronic) (peripheral) (principal); L97.222 Non-pressure chronic ulcer of left calf with fat layer exposed; R60.1 Generalized edema; L60.0 Ingrowing nail; L84 Corns and callosities; E11.9 Type 2 diabetes mellitus without complications; Z79.84 Long term (current) use of oral hypoglycemic drugs; I10 Essential (primary) hypertension; M79.675 Pain in left toe(s)
CPT/HCPCS: 11042

== ENCOUNTER 2020-08-09 09:45 | Outpatient (CLI) | payer OTHER ==
[~2020-08-09 09:45] MED LIST changes: -DAKINS HALF STRENGTH (0.25%) 480 ML BOTTLE ONE; -LIDOCAINE SOLN 4% 50 ML BOTTLE ONE
[2020-08-09] MEDS ORDERED: UREA 10% -AHA 4% CREAM 57 GM TUBE ONE (10:20)
== END 2020-08-09 23:59 | disposition home or self-care (01) ==
LOC: WOU 09:45
PROVIDERS: ATTEND Podiatrist Foot & Ankle Surgery
DX: I87.2 Venous insufficiency (chronic) (peripheral) (principal); L97.222 Non-pressure chronic ulcer of left calf with fat layer exposed; L60.0 Ingrowing nail; B35.1 Tinea unguium; L84 Corns and callosities; R60.1 Generalized edema; E11.9 Type 2 diabetes mellitus without complications; Z79.84 Long term (current) use of oral hypoglycemic drugs; M79.675 Pain in left toe(s); E66.01 Morbid (severe) obesity due to excess calories; Z68.42 Body mass index [BMI] 45.0-49.9, adult
CPT/HCPCS: 11042

== ENCOUNTER 2020-08-23 10:01 | Outpatient (CLI) | payer OTHER | END 2020-08-23 23:59 | disposition home or self-care (01) | LOC: WOU 10:01 | PROVIDERS: ATTEND Podiatrist Foot & Ankle Surgery | DX: I87.2 Venous insufficiency (chronic) (peripheral) (principal); L97.222 Non-pressure chronic ulcer of left calf with fat layer exposed; B35.1 Tinea unguium; B35.3 Tinea pedis; E11.9 Type 2 diabetes mellitus without complications; Z79.84 Long term (current) use of oral hypoglycemic drugs; E66.9 Obesity, unspecified; Z68.42 Body mass index [BMI] 45.0-49.9, adult; L84 Corns and callosities; R60.1 Generalized edema; M79.675 Pain in left toe(s) | CPT/HCPCS: 11042 ==

== ENCOUNTER 2020-09-13 10:00 | Outpatient (CLI) | payer OTHER | END 2020-09-13 23:59 | disposition home or self-care (01) | LOC: WOU 10:00 | PROVIDERS: ATTEND Podiatrist Foot & Ankle Surgery | DX: I87.2 Venous insufficiency (chronic) (peripheral) (principal); L97.222 Non-pressure chronic ulcer of left calf with fat layer exposed; L84 Corns and callosities; B35.1 Tinea unguium; E11.9 Type 2 diabetes mellitus without complications; Z79.84 Long term (current) use of oral hypoglycemic drugs; B35.3 Tinea pedis; R60.1 Generalized edema | CPT/HCPCS: 11042 ==

== ENCOUNTER 2020-09-27 09:30 | Outpatient (CLI) | payer OTHER ==
[2020-09-27] MEDS ORDERED: LIDOCAINE SOLN 4% 50 ML BOTTLE ONE (09:54)
== END 2020-09-27 23:59 | disposition home or self-care (01) ==
LOC: WOU 09:30
PROVIDERS: ATTEND Podiatrist Foot & Ankle Surgery
DX: I87.2 Venous insufficiency (chronic) (peripheral) (principal); L97.822 Non-pressure chronic ulcer of other part of left lower leg with fat layer exposed; B35.1 Tinea unguium; B35.3 Tinea pedis; Z79.84 Long term (current) use of oral hypoglycemic drugs; E11.9 Type 2 diabetes mellitus without complications; L84 Corns and callosities; R60.1 Generalized edema; M79.675 Pain in left toe(s); E66.01 Morbid (severe) obesity due to excess calories; Z68.42 Body mass index [BMI] 45.0-49.9, adult
CPT/HCPCS: G0463